=== PATIENT | male | born 1985 ===

== ENCOUNTER 2017-08-21 07:13 | Emergency (ER) | payer SELFPAY ==
[2017-08-21 07:32] VITALS: BP 119/73; PULSE 88; RESP 15; TEMP 98.5; O2SAT 100
--- NOTE | 2017-08-21 08:49 | C.PDOC ---
Time Seen by Provider: 08/21/17 07:46 Chief Complaint (Nursing): Abnormal Skin Integrity Past Medical History Vital Signs: Last Vital Signs Temp 98.5 F 08/21/17 07:30 Pulse 88 08/21/17 07:30 Resp 15 08/21/17 07:30 BP 119/73 08/21/17 07:30 Pulse Ox 100 08/21/17 07:30 - Social History Hx Alcohol Use: No Hx Substance Use: Yes - Immunization History Hx Tetanus Toxoid Vaccination: Yes Hx Influenza Vaccination: No Hx Pneumococcal Vaccination: No ED Course And Treatment O2 Sat by Pulse Oximetry: 100 Disposition - Disposition Referrals: [facility] at [facility] [Outside] Disposition: HOME/ ROUTINE Disposition Time: 08:46 Condition: GOOD Additional Instructions: Follow up with the medical doctor within 1-2 days. Return if worsened. Instructions: Poison Jennifer, Poison [place], Poison [place] (DC) - Clinical Impression Clinical Impression: Poison jennifer
--- NOTE | 2017-08-21 08:51 | C.PDOC ---
History Of Present Illness 32-year-old male, presents to the emergency department with complaints of an itchy rash to bilateral upper and lower extremities, ongoing for the past week. Patient states rash flares up and then improves on its own. He denies any known allergens. 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 Denies nausea/vomiting, fever, chills, chest pain, back pain, shortness of breath, throat swelling/pain, new foods/shampoos, or any other associated symptoms. at home with similar symptoms. No other complaints at this time. Time Seen by Provider: 08/21/17 07:46 Chief Complaint (Nursing): Abnormal Skin Integrity History Per: Patient History/Exam Limitations: no limitations Current Symptoms Are (Timing): Still Present Past Medical History Reviewed: Historical Data, Nursing Documentation, Vital Signs Vital Signs: Last Vital Signs Temp 98.5 F 08/21/17 07:30 Pulse 88 08/21/17 07:30 Resp 15 08/21/17 07:30 BP 119/73 08/21/17 07:30 Pulse Ox 100 08/21/17 08:58 Family History: States: No Known Family Hx - Social History Hx Alcohol Use: No Hx Substance Use: Yes - Immunization History Hx Tetanus Toxoid Vaccination: Yes Hx Influenza Vaccination: No Hx Pneumococcal Vaccination: No Review Of Systems Constitutional: Negative for: Fever, Chills Cardiovascular: Negative for: Chest Pain Respiratory: Negative for: Cough, Shortness of Breath Gastrointestinal: Negative for: Nausea, Vomiting Musculoskeletal: Negative for: Back Pain Skin: Positive for: Rash Neurological: Negative for: Weakness, Numbness Physical Exam - Physical Exam Appears: Non-toxic, No Acute Distress Skin: Normal Color, Warm, Dry, Rash (Scant pink pinpoint papular/vesicle rash on B/L ankles and B/L arms in a linear distribution) Head: Atraumatic, Normacephalic Eye(s): bilateral: Normal Inspection, PERRL, EOMI Nose: Normal Oral Mucosa: Moist Lips: Normal Appearing Neck: Normal ROM, Supple Cardiovascular: Rhythm Regular, No Murmur Respiratory: Normal Breath Sounds, No Accessory Muscle Use Back: Normal Inspection Extremity: Normal ROM, No Deformity, No Swelling Neurological/Psych: Oriented x3, Normal Speech Gait: Steady ED Course And Treatment O2 Sat by Pulse Oximetry: 100 (RA) Pulse Ox Interpretation: Normal Disposition - Disposition Referrals: [facility] at [facility] [Outside] Disposition: HOME/ ROUTINE Disposition Time: 08:00 Condition: GOOD Additional Instructions: Follow up with the medical doctor within 1-2 days. Return if worsened. Prescriptions: Ketoconazole [Nizoral] 120 ml TP BID #2 shampoo Ketoconazole 2% Cr [Nizoral] 60 gm EXT BID #4 tube Triamcinolone 0.1% [Triamcinolone 0.1% Cream] 0.1 gm TP BID PRN #3 tube PRN Reason: Itching / Pruritus Instructions: Poison Jennifer, Poison [place], Poison [place] (DC) Forms: [employer] (Turkmen) - Clinical Impression Clinical Impression: Poison jennifer - Scribe Statement The provider has reviewed the documentation as recorded by the Scribe (Shalini Nina) All medical record entries made by the Scribe were at my direction and personally dictated by me. I have reviewed the chart and agree that the record accurately reflects my personal performance of the history, physical exam, medical decision making, and the department course for this patient. I have also personally directed, reviewed, and agree with the discharge instructions and disposition.
== END 2017-08-21 09:26 | disposition home or self-care (01) ==
LOC: C.ER 07:13
DX: L23.7 Allergic contact dermatitis due to plants, except food (principal)